=== PATIENT | male | born 1990 | race Two or more races ===

== ENCOUNTER 2024-04-28 16:29 | Emergency (ER) | payer MEDICARE, OTHER ==
[~2024-04-28] VITALS: Ht 167.6 cm; Wt 53.3 kg
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
[2024-04-28 18:30] VITALS: BP 110/76; PULSE 88; RESP 18; TEMP 98.3; O2SAT 98
== END 2024-04-28 18:35 | disposition home or self-care (01) ==
LOC: ER 16:29
DX: S81.031A Puncture wound without foreign body, right knee, initial encounter (principal); F12.90 Cannabis use, unspecified, uncomplicated; Z98.890 Other specified postprocedural states; X58.XXXA Exposure to other specified factors, initial encounter; Y93.89 Activity, other specified; Y92.89 Other specified places as the place of occurrence of the external cause; Y99.8 Other external cause status
CPT/HCPCS: 73562

== ENCOUNTER 2024-06-02 19:29 | Emergency (ER) | payer MEDICAID ==
[~2024-06-02] VITALS: Ht 170.2 cm; Wt 48.0 kg
[2024-06-02 20:24] VITALS: BP 124/64; PULSE 83; RESP 16; TEMP 98; O2SAT 97
[2024-06-02] MEDS: cefTRIAXone SOD 1,000 MG VL IM ONE (20:46)
[2024-06-02] MEDS ORDERED: DOXY100C4 PO (20:48)
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
== END 2024-06-02 20:49 | disposition home or self-care (01) ==
LOC: ER 19:29
DX: S80.911A Unspecified superficial injury of right knee, initial encounter (principal); V89.2XXA Person injured in unspecified motor-vehicle accident, traffic, initial encounter; Y93.55 Activity, bike riding; Y92.488 Other paved roadways as the place of occurrence of the external cause; Y99.8 Other external cause status
CPT/HCPCS: 96372; 99283; J0696

== ENCOUNTER 2024-06-18 10:28 | Emergency (ER) | payer MEDICAID ==
[~2024-06-18] VITALS: Ht 170.2 cm; Wt 55.7 kg
[2024-06-18 10:58] VITALS: BP 96/53; PULSE 82; RESP 20; TEMP 98.5; O2SAT 95
--- NOTE | 2024-06-18 12:30 | DVH ---
CLINICAL INDICATION: open wound TECHNIQUE: 3 radiographic views of the right knee were obtained. Comparison: XY R KNEE 3V XRAY on DOS: 04/28/24 FINDINGS/IMPRESSION: There is no evidence of acute fracture or dislocation. Postsurgical changes are visualized in the tib ia. The visualized joint space is well maintained. The alignment is anatomical. There is no radiopaque foreign body.
[2024-06-18 13:20] LABS: Basophils # (auto) 0.1 10 ^3/uL (0-0.2); Basophils % (auto) 0.9 % (0.0-2.0); Eosinophils # (auto) 0.3 10 ^3/uL (0-0.8); Eosinophils % (auto) 5.5 % (0.0-7.0); Hematocrit 47.3 % (41.0-53.0); Hemoglobin 16.1 g/dL (13.5-17.5); Lymphocytes % (auto) 32.3 % (10.0-50.0); Mean Corpuscular Hemoglobin 33.3 pg (28.0-32.0); Mean Corpuscular Volume 97.9 fL (80.0-100.0); Monocytes # (auto) 0.5 10 ^3/uL (0-1.3); Monocytes % (auto) 8.3 % (0.0-12.0); Neutrophils # (auto) 3.3 10 ^3/uL (1.6-8.6); Nucleated Red Blood Cells % 0.1 %; Platelet Count (auto) 249 10^3/uL (140-450); Red Blood Cells 4.83 10^6/uL (4.5-5.90); Red Cell Distribution Width 12.6 % (11.8-14.3); White Blood Cell 6.2 10^3/uL (4.4-10.8)
[2024-06-18 13:33] LABS: Chloride 105 mmol/L (98-107); Sodium 140 mmol/L (136-145)
[2024-06-18 13:34] LABS: Anion Gap 5 (5-15); Carbon Dioxide 30 mmol/L (20-31)
[2024-06-18 13:39] LABS: BUN/Creatinine Ratio 10.9 (10.0-20.0); Blood Urea Nitrogen 12 mg/dL (9-23); Glucose 83 mg/dL (74-106)
[2024-06-18 13:40] LABS: Calcium 10.7 mg/dL (8.7-10.4); Potassium 5.1 mmol/L (3.5-5.1)
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
== END 2024-06-18 14:12 | disposition home or self-care (01) ==
LOC: ER 10:28
DX: S81.031A Puncture wound without foreign body, right knee, initial encounter (principal); F12.90 Cannabis use, unspecified, uncomplicated; W19.XXXA Unspecified fall, initial encounter; Y93.89 Activity, other specified; Y92.89 Other specified places as the place of occurrence of the external cause; Y99.8 Other external cause status
CPT/HCPCS: 36415; 73562; 80048; 85025